=== PATIENT | male | born 1960 | race Caucasian/White ===

== ENCOUNTER 2017-08-01 18:16 | Emergency (ER) | payer SELFPAY ==
[2017-08-01] MEDS ORDERED: ASPIRIN 81 MG CHEW TAB ONE (18:22)
[2017-08-01] MEDS ORDERED: ASPIRIN 81 MG CHEW TAB PO ONE (18:23)
[2017-08-01] MEDS ORDERED: NITROGLYCERIN 0.4 MG TAB.SUBL SL ONE ×2 (18:23→18:43)
[2017-08-01] MEDS ORDERED: 0.9 % SODIUM CHLORIDE 1,000 ML IV ONE ×2 (18:27→18:44)
[2017-08-01] MEDS ORDERED: KETOROLAC TROMETHAMINE 30 MG/1ML VIAL IVP ONE (18:35)
[2017-08-01 18:38] LABS: MEAN CORPUSCULAR HEMOGLOBIN 30.1 pg (28.0-34.0); MEAN CORPUSCULAR VOLUME 88.1 fl (80.0-100.0)
--- NOTE | 2017-08-01 18:47 | ED Physician Documentation ---
Chest Pain - HISTORIAN Historian: patient, spouse - HPI Stated Complaint: Chest pain Chief Complaint: Chest Pain Onset: hours (0900) Timing: worse Duration: worse Last known Well Date: 08/01/17 Last Known Well Time: 09:00 Context: other (driving) Severity: severe Quality: tightness, sharp, stabbing Chest Pain Radiation: arms (bilateral), shoulders (between shoulder blades) Chest Pain Signs/Symptoms: nausea. denies: vomiting, diaphoresis, dyspnea, tachypnea, tachycardia, hypotension, palpitations, weakness Worsened By: nothing Relieved By: nothing Further Comments: yes (56 year old male patient presents with complaint of Chest pain since 0900 this morning. 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 Reports radiation to both arms. Denies nausea, C/O SOB "sometimes, not all day", denies diaphoresis. Has not eaten today.) - ROS CONST: none MS/LYMPH: none GI/: nausea. denies: none, abdominal pain, problems urinating, vomiting, diarrhea, black stools, other EYES/ENT: none SKIN/ENDO: none NEURO/PSYCH: none - PAST HX OR risk factors: no pertinent history (does not go to the doctor) DVT/PE Risk Factors: none TAD/AAA risk factors: none Neuro deficit: none GI disease: none Lung disease: none Surgeries/Procedures: none Allergies/Adverse Reactions: Allergies Allergy/AdvReac Type Severity Reaction Status Date / Time No Known Allergies Allergy Verified 08/01/17 18:42 Home Medications: Ambulatory Orders Medication Instructions Recorded NK [NK] 08/01/17 - SOCIAL HX Smoking History: cigarettes - FAMILY HX Family HX: denies: none - VITAL SIGNS Vital Signs: Vital Signs Temp Pulse Resp BP Pulse Ox 98.4 F 79 24 169/95 93 08/01/17 18:35 08/01/17 18:35 08/01/17 18:35 08/01/17 18:35 08/01/17 18:35 - REVIEWED ASSESSMENTS Nursing Assessment Reviewed: Yes Vitals Reviewed: Yes Progress - Progress Progress: CP 10/10 on arrival, worse with palpation of left anterior chest wall. Patient denies SOB or nausea at present. 1st nitro - CP 10/10, little to no change in pain 2nd nitro -CP improved slightly 3rd nitro - CP 8-9/10 1900 Trop 27.9 - nitro drip started; heparin bolus and infusion started; Morphine 4 mg IV ordered. Updated patient and on lab - recommended immediate transfer to photographic laboratory technician. Patient prefers [facility]. Call to [facility] 1909 Patient accepted through STEMI line by Dr Merino. EKG and labs sent. Helicopter called. CP down to 11/29 1950 [facility] at bedside - EKG/XRAY/CT XRAY: chest (cardiomegaly with vascular congestion) ED Results Lab/Radiology - Lab Results Lab Results: Lab Results 08/01/17 18:25 WBC 18.50 K/ul H K/ul (4.00-12.00) RBC 5.33 M/ul H M/ul (3.90-5.20) Hgb 16.0 g/dL g/dL (12.0-18.0) Hct 47.0 % % (37.0-53.0) MCV 88.1 fl fl (80.0-100.0) MCH 30.1 pg pg (28.0-34.0) MCHC 34.1 g/dL g/dL (30.0-36.0) RDW 12.4 % % (11.3-14.3) Plt Count 324 K/mm3 K/mm3 (130-400) Neut % (Auto) 89.9 % H % (39.0-79.0) Lymph % (Auto) 7.3 % L % (16.0-50.0) Lee % (Auto) 1.1 % % (0.0-11.0) Eos % (Auto) 1.2 % % (0.0-6.8) Baso % (Auto) 0.3 (0.0-1.5) Neut # (Auto) 16.6 # k/uL H # k/uL (1.4-7.7) Lymph # (Auto) 1.4 # k/uL # k/uL (0.6-4.0) Lee # (Auto) 0.2 # k/uL # k/uL (0.0-0.9) Eos # (Auto) 0.2 # k/uL # k/uL (0.0-0.6) Baso # (Auto) 0.0 # k/uL # k/uL (0.0-0.5) Reactive Lymphs % 0.2 % % (0.0-5.0) Reactive Lymphs # 0.0 # k/uL # k/uL (0.0-0.8) - Orders Orders: ED Orders Category Date Time Status Continuous EKG monitoring Q30M Care 08/01/17 18:23 Active Continuous Pulse Oximetry Q30M Care 08/01/17 18:[address] IV Lock 1T Care 08/01/17 18:23 Active CHEST 1VIEW [RAD] Stat Exams 08/01/17 18:22 Ordered CBC/PLATELET/DIFF Stat Lab 08/01/17 18:25 Completed CMP Stat Lab 08/01/17 18:25 Received LACTATE Stat Lab 08/01/17 18:44 Ordered TROPONIN I (cTnI) Stat Lab 08/01/17 18:25 Received UA W/MICRO IF INDICATED Stat Lab 08/01/17 18:23 Ordered 0.9 % Sodium Chloride [Normal Saline] 1,000 ml Med 08/01/17 18:27 Discontinued IV .STK-MED 0.9 % Sodium Chloride [Normal Saline] 1,000 ml Med 08/01/17 18:44 Ordered IV NOW Aspirin Med 08/01/17 18:22 Discontinued 324 mg .ROUTE .STK-MED ONE Aspirin Med 08/01/17 18:23 Discontinued 324 mg PO NOW ONE Ketorolac Tromethamine [Toradol] Med 08/01/17 18:35 Once 30 mg IVP NOW ONE Nitroglycerin [Nitroquick] Med 08/01/17 18:23 Discontinued 0.4 mg SL NOW ONE Nitroglycerin [Nitroquick] Med 08/01/17 18:43 Once 0.4 mg SL NOW ONE Nitroglycerin [Nitroquick] Med 08/01/17 18:50 Ordered 0.4 mg SL Q5M PRN Oxygen Daily Oxygen 08/01/17 18:30 Ordered EKG WITH COMPARISON Stat Ther 08/01/17 18:23 Ordered Chest Pain Physical Exam - EXAM General Appearance: moderate distress EENT: eye inspection normal, ENT inspection normal, pharynx normal, no signs of dehydration, MARITZA, no nystagmus, TM's nml Respiratory: no resp. distress, nml breath sounds, other (chest pain with palpation) CVS: reg. rate & rhythm, no murmur, no gallop, no friction rub, pulses full, pulses equal Abdomen: soft, no organomegaly, normal bowel sounds, no abdominal bruit, no distension Skin: normal color, warm/dry, NR, INT, DR Extremities: non-tender, normal range of motion, no evidence of injury, no edema , J, POCKET [employer]SEM[employer]ER Neuro: oriented X3, CN's nml as tested, motor nml, sensation nml, mood/affect nml Discharge Clincal Impression: AMI (acute myocardial infarction) Qualifiers: Myocardial infarction type: ST elevation myocardial infarction Involved coronary artery: unspecified coronary artery Qualified Code(s): I21.3 - ST elevation (STEMI) myocardial infarction of unspecified site STEMI (ST elevation myocardial infarction) Qualifiers: Involved coronary artery: unspecified coronary artery Qualified Code(s): I21.3 - ST elevation (STEMI) myocardial infarction of unspecified site Leukocytosis Qualifiers: Leukocytosis type: unspecified Qualified Code(s): D72.829 - Elevated white blood cell count, unspecified Referrals: Primary Doctor,No [Primary Care Provider] - 2 Days Condition: Critical Disposition: 02 XFER [id number] HOSP Decision to Admit: NO Decision Time: 19:26
[2017-08-01] MEDS ORDERED: NITROGLYCERIN 0.4 MG TAB.SUBL SL PRN (18:50)
[2017-08-01 18:55] LABS: eGFR (African) > 60; eGFR (Non-African) > 60
[2017-08-01] MEDS ORDERED: NITROGLYCERIN/D5W 50 MG/250 ML ML IV ONE ×3 (18:58→19:02)
[2017-08-01] MEDS ORDERED: HEPARIN SODIUM 5000 UNIT/1 ML IVP ONE (18:58)
[2017-08-01] MEDS ORDERED: HEPARIN SODIUM 5000 UNIT/1 ML ONE (18:59)
[2017-08-01] MEDS ORDERED: HEPARIN SODIUM,PORCINE/D5W 20,000 UNIT/500 ML BAG IV ONE ×3 (18:59→19:08)
[2017-08-01] MEDS ORDERED: MORPHINE SULFATE 4 MG/ML PREFILLED SYR IVP ONE (19:08)
[2017-08-01] MEDS ORDERED: ONDANSETRON HCL/PF 4 MG/ 2ML VIAL ONE (19:12)
[2017-08-01] MEDS ORDERED: ONDANSETRON HCL/PF 4 MG/ 2ML VIAL IVP ONE (19:15)
[2017-08-01 20:19] VITALS: BP 138/75
--- NOTE | 2017-08-02 06:28 | Diagnostic Imaging Report ---
KATHIA HENDRIX (EVENT MANAGEMENT CONSULTANT) - ER [facility] [address] [facility] [address] [place], [place]. [address] Report Submission Date: Aug 01, 2017 7:32:39 PM CDT Patient Study Name: TIFFANIE BEAR Date: Aug 01, 2017 6:48:25 PM CDT Modality Type: DX Gender: M Description: CHEST : 60 Institution: [facility] Physician: KATHIA HENDRIX) - ER Chest AP portable Date of Exam: August 01, 2017. History: CHEST PAIN STARTED TODAY (Hx) Findings: No comparison studies are provided. Body habitus limits radiographic technique. The cardiac and mediastinal silhouettes are normal. No discrete infiltrate or effusion is identified. The trachea is midline and the aortic arch contour is normal. There is questionable mild pulmonary vascular congestion. Impression: Questionable mild pulmonary vascular congestion. Electronically signed on Aug 01, 2017 7:32:39 PM CDT by: Deena MCCABE
[2017-08-02 08:32] LABS: BASOPHILS % 1 % (0-2); EOSINOPHILS % 0 % (0-7); MONOCYTES % 1 % (0-11); PLT EST. EST. AGREES W/PLT CT; SEGMENTED NEUTROPHILS % 60 % (39-79); TOXIC GRANULATION PRESENT
== END 2017-08-01 19:59 | disposition short-term general hospital (02) ==
LOC: ED 18:16
DX: I21.3 ST elevation (STEMI) myocardial infarction of unspecified site (principal); D72.829 Elevated white blood cell count, unspecified
CPT/HCPCS: 71045; 80053; 83605; 84484; 85025; 85730; 93005; J1644; J1885; J2270; J2405; J3490; J7030; 96365; 96366; 96368; 96375; 99284; S1016